=== PATIENT | male | born 1985 | race Caucasian/White ===

== ENCOUNTER 2017-03-24 10:42 | Emergency (ER) | payer OTHER ==
[2017-03-24 10:50] VITALS: BP 120/85
[2017-03-24] MEDS ORDERED: Ibuprofen TAB* 600 MG PO ONE (10:56)
--- NOTE | 2017-03-24 10:59 | UC ---
Hand/Wrist HPI - HPI Summary HPI Summary: 31 yo right handed male inadvertently hit lateral left hand on wall c/o moderate to severe pain with movement mild pain at rest occurred a few hours ago - History Of Current Complaint Chief Complaint: UCLowerExtremity Stated Complaint: HAND INJURY Time Seen by Provider: 03/24/17 10:53 Hx Obtained From: Patient Onset/Duration: Sudden Onset Severity Initially: Moderate Severity Currently: Mild Pain Intensity: 4 Pain Scale Used: 0-10 Numeric Character Of Pain: Dull, Aching Aggravating Factor(s): Movement Alleviating: Rest, Ice Associated Signs And Symptoms: Positive: Swelling Related History: Dominant Hand Right - Allergies/Home Medications Allergies/Adverse Reactions: Allergies Allergy/AdvReac Type Severity Reaction Status Date / Time Shellfish Allergy Allergy Hives/Diff. Verified 03/24/17 10:49 Breathing/I tching Home Medications: Home Medications Amphetamine-Dextroamphetamine [Adderall 30 mg-] 1 tab PO DAILY 03/24/17 [ History Confirmed 03/24/17] PMH/Surg Hx/FS Hx/Imm Hx Previously Healthy: Yes - Surgical History Surgical History: None - Family History Known Family History: Positive: Cardiac Disease, Hypertension, Diabetes Family History: NON CONTRIBUTORY - Social History Alcohol Use: None Substance Use Type: None Smoking Status (MU): Current Some Day Smoker Type: Cigarettes Amount Used/How Often: a few per day Length of Time of Smoking/Using Tobacco: 5+ years Have You Smoked in the Last Year: No When Did the Patient Quit Smoking/Using Tobacco: 09/2014 - Immunization History Hx Tetanus, Diphtheria Vaccination: Yes Vaccination Up to Date: Yes Review of Systems Constitutional: Negative Skin: Negative Eyes: Negative ENT: Negative Respiratory: Negative Cardiovascular: Negative Gastrointestinal: Negative Genitourinary: Negative Motor: Negative Neurovascular: Negative Musculoskeletal: Arthralgia Neurological: Negative Psychological: Negative All Other Systems Reviewed And Are Negative: Yes Physical Exam Triage Information Reviewed: Yes Appearance: Well-Appearing, No Pain Distress, Well-Nourished Vital Signs: Initial Vital Signs Temp 98.7 F 03/24/17 10:46 Pulse 58 03/24/17 10:46 Resp 16 03/24/17 10:46 BP 120/85 03/24/17 10:46 Pulse Ox 98 03/24/17 10:46 Eyes: Positive: Conjunctiva Clear ENT: Positive: Hearing grossly normal. Negative: Pharyngeal erythema, Nasal congestion, Nasal drainage, Tonsillar exudate, Trismus, Muffled/hoarse voice Neck: Positive: Supple, Nontender, No Lymphadenopathy Respiratory: Positive: Lungs clear, Normal breath sounds, No respiratory distress Cardiovascular: Positive: RRR, No Murmur Musculoskeletal: Positive: Edema @ Neurological: Positive: Alert Psychological Exam: Normal Skin Exam: Normal Hand/Wrist Course/Dx - Differential Dx/Diagnosis Provider Diagnoses: left hand FRACTURE BASE OF TH METARCARPAL. NON DISPLACED/ CLOSED Discharge - Discharge Plan Condition: Stable Disposition: HOME Prescriptions: Ibuprofen TAB* [Motrin TAB*] 600 mg PO Q6H PRN #40 tab PRN Reason: Pain Patient Education Materials: Hand Fracture (ED) Referrals: Antonio Vickers MD [Medical Doctor] - As Soon As Possible Additional Instructions: splint elevate ice NON DISPLACED FRACTURE BASE OF 5TH METACARPAL Images Hands: 1 - tender/swollen
--- NOTE | 2017-03-24 11:30 | RAD ---
HISTORY: Injury, base of fifth metacarpal of left hand COMPARISONS: None VIEWS: 4, Frontal, lateral, and oblique views of the left hand FINDINGS: BONE DENSITY: Normal. BONES: There is a nondisplaced fracture of the base of the fifth metacarpal JOINTS: There is no arthropathy. ALIGNMENT: There is no dislocation. SOFT TISSUES: Unremarkable. OTHER FINDINGS: None. IMPRESSION: NONDISPLACED FRACTURE OF THE BASE OF THE FIFTH METACARPAL OF THE LEFT HAND
== END 2017-03-24 11:45 | disposition home or self-care (01) ==
LOC: UCEAST 10:42
DX: S62.317A Displaced fracture of base of fifth metacarpal bone, left hand, initial encounter for closed fracture (principal); W22.01XA Walked into wall, initial encounter; Y93.9 Activity, unspecified; Y92.9 Unspecified place or not applicable; Y99.9 Unspecified external cause status; Z72.0 Tobacco use
CPT/HCPCS: 99212; A9270-GY; G0463